=== PATIENT | male | born 1955 | race Caucasian/White ===

== ENCOUNTER 2017-02-22 13:23 | Inpatient (IN) | payer OTHER ==
--- NOTE | 2017-02-22 14:05 | EDM.PDOC ---
ED HPI GENERAL MEDICAL PROBLEM - General Chief Complaint: General Stated Complaint: FLU Time Seen by Provider: 02/22/17 14:05 Source of Information: Reports: Patient - History of Present Illness INITIAL COMMENTS - FREE TEXT/NARRATIVE: HISTORY AND PHYSICAL: History of present illness: [] Patient presents with flulike symptoms he also has problems with memory, weakness, dizzy and nausea History of dyslipidemia and 'prostate problems' Patient does not know his home medications Denies alcohol No fever vomiting diarrhea chest pain shortness breath or palpitation Review of systems: As per history of present illness and below otherwise all systems reviewed and negative. Past medical history: As per history of present illness and as reviewed below otherwise noncontributory. Surgical history: As per history of present illness and as reviewed below otherwise noncontributory. Social history: No reported history of drug or alcohol abuse. Family history: As per history of present illness and as reviewed below otherwise noncontributory. Physical exam: HEENT: Atraumatic, normocephalic, pupils reactive, negative for conjunctival pallor or scleral icterus, mucous membranes moist, throat clear, neck supple, nontender, trachea midline. Lungs: Clear to auscultation, breath sounds equal bilaterally, chest nontender. Heart: S1S2, regular, negative for clicks, rubs, or JVD. Abdomen: Soft, nondistended, nontender. Negative for masses or hepatosplenomegaly. Negative for costovertebral tenderness. Pelvis: Stable nontender. Genitourinary: Deferred. Rectal: Deferred. Extremities: Atraumatic, negative for cords or calf pain. Neurovascular unremarkable. Neuro: Awake, alert, oriented. Cranial nerves II through XII unremarkable. Cerebellum unremarkable. Motor and sensory unremarkable throughout. Exam nonfocal. Skin tenting noted Diagnostics: [] Lab as below EKG Chest one view Head CT without Chest CT without CT abdomen pelvis without Therapeutics: [] Saline 100 cc per hour Impression: Hyponatremia-symptomatic Thrombocytopenia Elevated liver function Renal insufficiency Hypocalcemia Dehydration Definitive disposition and diagnosis as appropriate pending reevaluation and review of above. - Related Data Allergies Allergy/AdvReac Type Severity Reaction Status Date / Time Sulfa (Sulfonamide Allergy Hives Verified 02/22/17 13:34 Antibiotics) verapamil Allergy Hives Verified 02/22/17 13:34 Home Meds: Home Meds . [Unable to Verify Home Med List] 02/22/17 [History] Past Medical History HEENT History: Reports: Impaired vision Cardiovascular History: Reports: None Respiratory History: Reports: None Gastrointestinal History: Reports: None Genitourinary History: Reports: Prostate disorder Neurological History: Reports: None Psychiatric History: Reports: None Endocrine/Metabolic History: Reports: None Hematologic History: Reports: None Immunologic History: Reports: None Oncologic (Cancer) History: Reports: None Dermatologic History: Reports: None - Infectious Disease History Infectious Disease History: Reports: None - Past Surgical History Head Surgeries/Procedures: Reports: None Social & Family History - Tobacco Use Smoking Status *Q: Never Smoker - Caffeine Use Caffeine Use: Reports: Coffee - Recreational Drug Use Recreational Drug Use: No ED ROS GENERAL - Review of Systems Review Of Systems: ROS reveals no pertinent complaints other than HPI. ED EXAM, GENERAL - Physical Exam Exam: See Below Course - Vital Signs Last Recorded V/S: Last Vital Signs Temp 37.7 C 02/22/17 13:25 Pulse 104 H 02/22/17 13:25 Resp 18 02/22/17 13:25 BP 129/73 02/22/17 13:25 Pulse Ox 94 L 02/22/17 13:25 - Orders/Labs/Meds Orders: Active Orders 24 hr Category Date Time Status EKG 12 Lead [EKG Documentation Completion] [RC] STAT Care 02/22/17 13:39 Active EKG Documentation Completion [RC] STAT Care 02/22/17 14:04 Inactive Abdomen Pelvis wo Cont [CT] Stat Exams 02/22/17 14:35 Taken Chest 1V Frontal [CR] Stat Exams 02/22/17 14:04 Taken Chest wo Cont [CT] Stat Exams 02/22/17 14:35 Taken Head wo Cont [CT] Stat Exams 02/22/17 14:04 Taken AMYLASE [CHEM] Stat Lab 02/22/17 14:22 Received CKMB [CHEM] Stat Lab 02/22/17 14:22 Received CREATINE KINASE,CK [CHEM] Stat Lab 02/22/17 14:22 Received CULTURE BLOOD [BC] Stat Lab 02/22/17 14:07 Received CULTURE BLOOD [BC] Stat Lab 02/22/17 14:22 Received LIPASE [CHEM] Stat Lab 02/22/17 14:22 Received Sodium Chloride 0.9% [Normal Saline] 1,000 ml Med 02/22/17 14:15 Active IV STAT Blood Culture x2 Reflex Set [OM.PC] Stat Oth 02/22/17 14:04 Ordered Medication Orders Sodium Chloride (Normal Saline) 1,000 mls @ 125 mls/hr IV STAT HAIM Last Admin: 02/22/17 14:20 Dose: 125 mls/hr Labs: Laboratory Tests 02/22/17 02/22/17 02/22/17 Range/Units 13:46 13:46 13:46 WBC 3.13 L (4.0-11.0) K/uL RBC 4.74 (4.50-5.90) M/uL Hgb 14.6 (13.0-17.0) g/dL Hct 40.0 (38.0-50.0) % MCV 84.4 (80.0-98.0) fL MCH 30.8 (27.0-32.0) pg MCHC 36.5 (31.0-37.0) g/dL RDW Std Deviation 42.2 (28.0-62.0) fl RDW Coeff of Colin 14 (11.0-15.0) % Plt Count 23 L (150-400) K/uL MPV 11.00 (7.40-12.00) fL Add Manual Diff YES Neutrophils % (Manual) 63 (48.0-80.0) % Band Neutrophils % 21 % Lymphocytes % (Manual) 11 L (16.0-40.0) % Monocytes % (Manual) 1 (0.0-15.0) % Metamyelocytes % 4 % Nucleated RBC % 0.0 /100WBC Absolute Seg Neuts 2.0 Band Neutrophils # 0.7 Lymphocytes # (Manual) 0.3 Monocytes # (Manual) 0 Absolute Metamyelocyte 0.1 Nucleated RBCs # 0 K/uL INR 1.09 (0.86-1.11) Sodium 126 L (136-146) mmol/L Potassium 3.4 L (3.5-5.1) mmol/L Chloride 94 L (98-110) mmol/L Carbon Dioxide 19 L (21-31) mmol/L BUN 25 H (6.0-23.0) mg/dL Creatinine 1.7 H (0.6-1.5) mg/dL Est Cr Clr Drug Dosing TNP Estimated GFR (MDRD) 40.9 ml/min Glucose 125 H (60-110) mg/dL Calcium 8.4 L (8.8-10.8) mg/dL Total Bilirubin 0.9 (0.1-1.5) mg/dL AST 503 H (5-40) IU/L ALT 189 H (8-54) IU/L Alkaline Phosphatase 99 (40-150) Troponin I (0.0-0.29) NG/ML Total Protein 6.9 (6.0-8.0) g/dL Albumin 3.8 (3.4-4.8) g/dL Globulin 3.1 (2.0-3.5) g/dL Albumin/Globulin Ratio 1.2 L (1.3-2.8) Urine Color Urine Appearance Urine pH (5.0-8.0) Ur Specific Viola (1.001-1.035) Urine Protein (NEGATIVE) mg/dL Urine Glucose (UA) (NEGATIVE) mg/dL Urine Ketones (NEGATIVE) mg/dL Urine Occult Blood (NEGATIVE) Urine Nitrite (NEGATIVE) Urine Bilirubin (NEGATIVE) Urine Urobilinogen (<2.0) EU/dL Ur Leukocyte Esterase (NEGATIVE) Urine RBC (0-2/HPF) Urine WBC (0-5/HPF) Ur Epithelial Cells (NONE-FEW) Amorphous Sediment (NEGATIVE) Urine Bacteria (NEGATIVE) Fine Granular Casts (NEGATIVE) Urine Opiates Screen (NEGATIVE) Ur Oxycodone Screen (NEGATIVE) Urine Methadone Screen (NEGATIVE) Ur Barbiturates Screen (NEGATIVE) Ur Phencyclidine Scrn (NEGATIVE) Ur Amphetamine Screen (NEGATIVE) U Methamphetamines Scrn (NEGATIVE) U Benzodiazepines Scrn (NEGATIVE) U Cocaine Metab Screen (NEGATIVE) U Marijuana (THC) Screen (NEGATIVE) Ethyl Alcohol mg/dL 02/22/17 02/22/17 02/22/17 Range/Units 14:22 14:22 15:00 WBC (4.0-11.0) K/uL RBC (4.50-5.90) M/uL Hgb (13.0-17.0) g/dL Hct (38.0-50.0) % MCV (80.0-98.0) fL MCH (27.0-32.0) pg MCHC (31.0-37.0) g/dL RDW Std Deviation (28.0-62.0) fl RDW Coeff of Colin (11.0-15.0) % Plt Count (150-400) K/uL MPV (7.40-12.00) fL Add Manual Diff Neutrophils % (Manual) (48.0-80.0) % Band Neutrophils % % Lymphocytes % (Manual) (16.0-40.0) % Monocytes % (Manual) (0.0-15.0) % Metamyelocytes % % Nucleated RBC % /100WBC Absolute Seg Neuts Band Neutrophils # Lymphocytes # (Manual) Monocytes # (Manual) Absolute Metamyelocyte Nucleated RBCs # K/uL INR (0.86-1.11) Sodium (136-146) mmol/L Potassium (3.5-5.1) mmol/L Chloride (98-110) mmol/L Carbon Dioxide (21-31) mmol/L BUN (6.0-23.0) mg/dL Creatinine (0.6-1.5) mg/dL Est Cr Clr Drug Dosing Estimated GFR (MDRD) ml/min Glucose (60-110) mg/dL Calcium (8.8-10.8) mg/dL Total Bilirubin (0.1-1.5) mg/dL AST (5-40) IU/L ALT (8-54) IU/L Alkaline Phosphatase (40-150) Troponin I < 0.10 (0.0-0.29) NG/ML Total Protein (6.0-8.0) g/dL Albumin (3.4-4.8) g/dL Globulin (2.0-3.5) g/dL Albumin/Globulin Ratio (1.3-2.8) Urine Color Urine Appearance Urine pH (5.0-8.0) Ur Specific Viola (1.001-1.035) Urine Protein (NEGATIVE) mg/dL Urine Glucose (UA) (NEGATIVE) mg/dL Urine Ketones (NEGATIVE) mg/dL Urine Occult Blood (NEGATIVE) Urine Nitrite (NEGATIVE) Urine Bilirubin (NEGATIVE) Urine Urobilinogen (<2.0) EU/dL Ur Leukocyte Esterase (NEGATIVE) Urine RBC (0-2/HPF) Urine WBC (0-5/HPF) Ur Epithelial Cells (NONE-FEW) Amorphous Sediment (NEGATIVE) Urine Bacteria (NEGATIVE) Fine Granular Casts (NEGATIVE) Urine Opiates Screen NEGATIVE (NEGATIVE) Ur Oxycodone Screen NEGATIVE (NEGATIVE) Urine Methadone Screen NEGATIVE (NEGATIVE) Ur Barbiturates Screen NEGATIVE (NEGATIVE) Ur Phencyclidine Scrn NEGATIVE (NEGATIVE) Ur Amphetamine Screen NEGATIVE (NEGATIVE) U Methamphetamines Scrn NEGATIVE (NEGATIVE) U Benzodiazepines Scrn NEGATIVE (NEGATIVE) U Cocaine Metab Screen NEGATIVE (NEGATIVE) U Marijuana (THC) Screen NEGATIVE (NEGATIVE) Ethyl Alcohol < 10.0 mg/dL 02/22/17 Range/Units 15:00 WBC (4.0-11.0) K/uL RBC (4.50-5.90) M/uL Hgb (13.0-17.0) g/dL Hct (38.0-50.0) % MCV (80.0-98.0) fL MCH (27.0-32.0) pg MCHC (31.0-37.0) g/dL RDW Std Deviation (28.0-62.0) fl RDW Coeff of Colin (11.0-15.0) % Plt Count (150-400) K/uL MPV (7.40-12.00) fL Add Manual Diff Neutrophils % (Manual) (48.0-80.0) % Band Neutrophils % % Lymphocytes % (Manual) (16.0-40.0) % Monocytes % (Manual) (0.0-15.0) % Metamyelocytes % % Nucleated RBC % /100WBC Absolute Seg Neuts Band Neutrophils # Lymphocytes # (Manual) Monocytes # (Manual) Absolute Metamyelocyte Nucleated RBCs # K/uL INR (0.86-1.11) Sodium (136-146) mmol/L Potassium (3.5-5.1) mmol/L Chloride (98-110) mmol/L Carbon Dioxide (21-31) mmol/L BUN (6.0-23.0) mg/dL Creatinine (0.6-1.5) mg/dL Est Cr Clr Drug Dosing Estimated GFR (MDRD) ml/min Glucose (60-110) mg/dL Calcium (8.8-10.8) mg/dL Total Bilirubin (0.1-1.5) mg/dL AST (5-40) IU/L ALT (8-54) IU/L Alkaline Phosphatase (40-150) Troponin I (0.0-0.29) NG/ML Total Protein (6.0-8.0) g/dL Albumin (3.4-4.8) g/dL Globulin (2.0-3.5) g/dL Albumin/Globulin Ratio (1.3-2.8) Urine Color YELLOW Urine Appearance CLOUDY Urine pH 5.5 (5.0-8.0) Ur Specific Viola 1.025 (1.001-1.035) Urine Protein 100 (NEGATIVE) mg/dL Urine Glucose (UA) NEGATIVE (NEGATIVE) mg/dL Urine Ketones NEGATIVE (NEGATIVE) mg/dL Urine Occult Blood LARGE H (NEGATIVE) Urine Nitrite NEGATIVE (NEGATIVE) Urine Bilirubin NEGATIVE (NEGATIVE) Urine Urobilinogen 0.2 (<2.0) EU/dL Ur Leukocyte Esterase NEGATIVE (NEGATIVE) Urine RBC 0-1 (0-2/HPF) Urine WBC 1-3 (0-5/HPF) Ur Epithelial Cells FEW (NONE-FEW) Amorphous Sediment MODERATE (NEGATIVE) Urine Bacteria 1+ H (NEGATIVE) Fine Granular Casts 4-6 (NEGATIVE) Urine Opiates Screen (NEGATIVE) Ur Oxycodone Screen (NEGATIVE) Urine Methadone Screen (NEGATIVE) Ur Barbiturates Screen (NEGATIVE) Ur Phencyclidine Scrn (NEGATIVE) Ur Amphetamine Screen (NEGATIVE) U Methamphetamines Scrn (NEGATIVE) U Benzodiazepines Scrn (NEGATIVE) U Cocaine Metab Screen (NEGATIVE) U Marijuana (THC) Screen (NEGATIVE) Ethyl Alcohol mg/dL Meds: Medications Generic Name Dose Route Start Last Admin Trade Name Freq PRN Reason Stop Dose Admin Sodium Chloride 1,000 mls @ 125 mls/hr 02/22/17 14:15 02/22/17 14:20 Normal Saline IV 125 mls/hr STAT HAIM Administration Departure - Departure Time of Disposition: 15:23 Disposition: Admitted As Inpatient 64 Condition: fair Clinical Impression: Hyponatremia, Elevated liver function tests, Dehydration, Thrombocytopenia Forms: ED Department Discharge - My Orders Last 24 Hours: My Active Orders 02/22/17 14:04 EKG Documentation Completion [RC] STAT Chest 1V Frontal [CR] Stat Head wo Cont [CT] Stat Blood Culture x2 Reflex Set [OM.PC] Stat 02/22/17 14:07 CULTURE BLOOD [BC] Stat 02/22/17 14:15 Sodium Chloride 0.9% [Normal Saline] 1,000 ml IV STAT 02/22/17 14:22 AMYLASE [CHEM] Stat CKMB [CHEM] Stat CREATINE KINASE,CK [CHEM] Stat CULTURE BLOOD [BC] Stat LIPASE [CHEM] Stat 02/22/17 14:35 Abdomen Pelvis wo Cont [CT] Stat Chest wo Cont [CT] Stat - Assessment/Plan Last 24 Hours: My Active Orders 02/22/17 14:04 EKG Documentation Completion [RC] STAT Chest 1V Frontal [CR] Stat Head wo Cont [CT] Stat Blood Culture x2 Reflex Set [OM.PC] Stat 02/22/17 14:07 CULTURE BLOOD [BC] Stat 02/22/17 14:15 Sodium Chloride 0.9% [Normal Saline] 1,000 ml IV STAT 02/22/17 14:22 AMYLASE [CHEM] Stat CKMB [CHEM] Stat CREATINE KINASE,CK [CHEM] Stat CULTURE BLOOD [BC] Stat LIPASE [CHEM] Stat 02/22/17 14:35 Abdomen Pelvis wo Cont [CT] Stat Chest wo Cont [CT] Stat
[2017-02-22 14:14] LABS: CHLORIDE,CL 94 mmol/L (98-110); SODIUM,NA 126 mmol/L (136-146)
[2017-02-22] MEDS: Sodium Chloride 0.9% 1,000 ML IV SCH ×2 (14:20→23:11)
--- NOTE | 2017-02-22 16:23 | PCM.HP ---
H&P History of Present Illness - General Date of Service: 02/22/17 Admit Problem/Dx: Admission Diagnosis/Problem Admission Diagnosis/Problem Hyponatremia Source of Information: Patient History Limitations: Reports: No limitations - History of Present Illness Initial Comments - Free Text/Narative: Began with shaking chills past several nights as well as watery diarrhea, Feeling "foggy" ,not confused, several days with anorexia bordering on nausea, but no pain or jaundice Sole medications something for prostatism and for cholesterol and flonase for sinus problems. Took antibiotics for same about 4 months ago. No odd food intake, travel or contact with sick people Found to have elevated LFTs. hyponatremia and hypokalemia as wlle as neutropenia and thrombocytopenia Onset of Symptoms: Reports: sudden Symptom Onset Date: 02/17/17 Symptom Onset Time: 22:00 Severity: moderate Improves with: Reports: None Worsens with: Reports: None Associated Symptoms: Reports: loss of appetite - Related Data Allergies/Adverse Reactions: Allergies Allergy/AdvReac Type Severity Reaction Status Date / Time Sulfa (Sulfonamide Allergy Hives Verified 02/22/17 13:34 Antibiotics) verapamil Allergy Hives Verified 02/22/17 13:34 Home Medications: Home Meds Rosuvastatin Calcium 20 mg PO BEDTIME 02/22/17 [History] Past Medical History HEENT History: Reports: Impaired vision, Sinusitis Cardiovascular History: Reports: None Respiratory History: Reports: None Gastrointestinal History: Reports: None Genitourinary History: Reports: Prostate disorder Neurological History: Reports: None Psychiatric History: Reports: None Endocrine/Metabolic History: Reports: None Hematologic History: Reports: None Immunologic History: Reports: None Oncologic (Cancer) History: Reports: None Dermatologic History: Reports: None - Infectious Disease History Infectious Disease History: Reports: None - Past Surgical History Head Surgeries/Procedures: Reports: None Social & Family History - Tobacco Use Smoking Status *Q: Never Smoker - Caffeine Use Caffeine Use: Reports: Coffee - Alcohol Use Alcohol Use History: No - Recreational Drug Use Recreational Drug Use: No - Living Situation & Occupation Living situation: Reports: (domicile in [facility] , runs front end loader technician here) H&P Review of Systems - Review of Systems: Review Of Systems: See Below General: Reports: chills, fatigue, decreased appetite HEENT: Reports: sinus congestion Pulmonary: Reports: No Symptoms Cardiovascular: Reports: no symptoms Gastrointestinal: Reports: Anorexia, Diarrhea Genitourinary: Reports: no symptoms Musculoskeletal: Reports: no symptoms Skin: Reports: no symptoms Psychiatric: Reports: no symptoms Neurological: Reports: No Symptoms, Other (notes slower mentation, no memory problems or fredrick confusion) Exam - Exam Exam: See Below - Vital Signs Vital Signs: Last Vital Signs Temp 37.7 C 02/22/17 13:25 Pulse 91 02/22/17 15:36 Resp 16 02/22/17 15:36 BP 124/82 02/22/17 15:36 Pulse Ox 91 L 02/22/17 15:36 Weight: 76.6 kg - Exam General: alert, oriented Neck: supple Cardiovascular: regular rate, regular rhythm Abdomen: hypoactive bowel sounds (Male) Exam: Deferred Rectal (Males) Exam: Deferred Back Exam: normal inspection Extremities: normal inspection. No: clubbing, calf tenderness - Patient Data Lab Results last 24 hrs: Laboratory Results - last 24 hr 02/22/17 02/22/17 02/22/17 Range/Units 13:46 13:46 13:46 WBC 3.13 L (4.0-11.0) K/uL RBC 4.74 (4.50-5.90) M/uL Hgb 14.6 (13.0-17.0) g/dL Hct 40.0 (38.0-50.0) % MCV 84.4 (80.0-98.0) fL MCH 30.8 (27.0-32.0) pg MCHC 36.5 (31.0-37.0) g/dL RDW Std Deviation 42.2 (28.0-62.0) fl RDW Coeff of Colin 14 (11.0-15.0) % Plt Count 23 L (150-400) K/uL MPV 11.00 (7.40-12.00) fL Add Manual Diff YES Neutrophils % (Manual) 63 (48.0-80.0) % Band Neutrophils % 21 % Lymphocytes % (Manual) 11 L (16.0-40.0) % Monocytes % (Manual) 1 (0.0-15.0) % Metamyelocytes % 4 % Nucleated RBC % 0.0 /100WBC Absolute Seg Neuts 2.0 Band Neutrophils # 0.7 Lymphocytes # (Manual) 0.3 Monocytes # (Manual) 0 Absolute Metamyelocyte 0.1 Nucleated RBCs # 0 K/uL INR 1.09 (0.86-1.11) Sodium 126 L (136-146) mmol/L Potassium 3.4 L (3.5-5.1) mmol/L Chloride 94 L (98-110) mmol/L Carbon Dioxide 19 L (21-31) mmol/L BUN 25 H (6.0-23.0) mg/dL Creatinine 1.7 H (0.6-1.5) mg/dL Est Cr Clr Drug Dosing TNP Estimated GFR (MDRD) 40.9 ml/min Glucose 125 H (60-110) mg/dL Calcium 8.4 L (8.8-10.8) mg/dL Total Bilirubin 0.9 (0.1-1.5) mg/dL AST 503 H (5-40) IU/L ALT 189 H (8-54) IU/L Alkaline Phosphatase 99 (40-150) Creatine Kinase (9-236) IU/L CK-MB (CK-2) (0-6.6) ng/ml Troponin I (0.0-0.29) NG/ML Total Protein 6.9 (6.0-8.0) g/dL Albumin 3.8 (3.4-4.8) g/dL Globulin 3.1 (2.0-3.5) g/dL Albumin/Globulin Ratio 1.2 L (1.3-2.8) Amylase (10-90) U/L Lipase (7-80) U/L Urine Color Urine Appearance Urine pH (5.0-8.0) Ur Specific Bivalve (1.001-1.035) Urine Protein (NEGATIVE) mg/dL Urine Glucose (UA) (NEGATIVE) mg/dL Urine Ketones (NEGATIVE) mg/dL Urine Occult Blood (NEGATIVE) Urine Nitrite (NEGATIVE) Urine Bilirubin (NEGATIVE) Urine Urobilinogen (<2.0) EU/dL Ur Leukocyte Esterase (NEGATIVE) Urine RBC (0-2/HPF) Urine WBC (0-5/HPF) Ur Epithelial Cells (NONE-FEW) Amorphous Sediment (NEGATIVE) Urine Bacteria (NEGATIVE) Fine Granular Casts (NEGATIVE) Urine Opiates Screen (NEGATIVE) Ur Oxycodone Screen (NEGATIVE) Urine Methadone Screen (NEGATIVE) Ur Barbiturates Screen (NEGATIVE) Ur Phencyclidine Scrn (NEGATIVE) Ur Amphetamine Screen (NEGATIVE) U Methamphetamines Scrn (NEGATIVE) U Benzodiazepines Scrn (NEGATIVE) U Cocaine Metab Screen (NEGATIVE) U Marijuana (THC) Screen (NEGATIVE) Ethyl Alcohol mg/dL 02/22/17 02/22/17 02/22/17 Range/Units 14:22 14:22 14:22 WBC (4.0-11.0) K/uL RBC (4.50-5.90) M/uL Hgb (13.0-17.0) g/dL Hct (38.0-50.0) % MCV (80.0-98.0) fL MCH (27.0-32.0) pg MCHC (31.0-37.0) g/dL RDW Std Deviation (28.0-62.0) fl RDW Coeff of Colin (11.0-15.0) % Plt Count (150-400) K/uL MPV (7.40-12.00) fL Add Manual Diff Neutrophils % (Manual) (48.0-80.0) % Band Neutrophils % % Lymphocytes % (Manual) (16.0-40.0) % Monocytes % (Manual) (0.0-15.0) % Metamyelocytes % % Nucleated RBC % /100WBC Absolute Seg Neuts Band Neutrophils # Lymphocytes # (Manual) Monocytes # (Manual) Absolute Metamyelocyte Nucleated RBCs # K/uL INR (0.86-1.11) Sodium (136-146) mmol/L Potassium (3.5-5.1) mmol/L Chloride (98-110) mmol/L Carbon Dioxide (21-31) mmol/L BUN (6.0-23.0) mg/dL Creatinine (0.6-1.5) mg/dL Est Cr Clr Drug Dosing Estimated GFR (MDRD) ml/min Glucose (60-110) mg/dL Calcium (8.8-10.8) mg/dL Total Bilirubin (0.1-1.5) mg/dL AST (5-40) IU/L ALT (8-54) IU/L Alkaline Phosphatase (40-150) Creatine Kinase 746 H (9-236) IU/L CK-MB (CK-2) 1.5 (0-6.6) ng/ml Troponin I < 0.10 (0.0-0.29) NG/ML Total Protein (6.0-8.0) g/dL Albumin (3.4-4.8) g/dL Globulin (2.0-3.5) g/dL Albumin/Globulin Ratio (1.3-2.8) Amylase 70 (10-90) U/L Lipase 93 H (7-80) U/L Urine Color Urine Appearance Urine pH (5.0-8.0) Ur Specific Bivalve (1.001-1.035) Urine Protein (NEGATIVE) mg/dL Urine Glucose (UA) (NEGATIVE) mg/dL Urine Ketones (NEGATIVE) mg/dL Urine Occult Blood (NEGATIVE) Urine Nitrite (NEGATIVE) Urine Bilirubin (NEGATIVE) Urine Urobilinogen (<2.0) EU/dL Ur Leukocyte Esterase (NEGATIVE) Urine RBC (0-2/HPF) Urine WBC (0-5/HPF) Ur Epithelial Cells (NONE-FEW) Amorphous Sediment (NEGATIVE) Urine Bacteria (NEGATIVE) Fine Granular Casts (NEGATIVE) Urine Opiates Screen (NEGATIVE) Ur Oxycodone Screen (NEGATIVE) Urine Methadone Screen (NEGATIVE) Ur Barbiturates Screen (NEGATIVE) Ur Phencyclidine Scrn (NEGATIVE) Ur Amphetamine Screen (NEGATIVE) U Methamphetamines Scrn (NEGATIVE) U Benzodiazepines Scrn (NEGATIVE) U Cocaine Metab Screen (NEGATIVE) U Marijuana (THC) Screen (NEGATIVE) Ethyl Alcohol < 10.0 mg/dL 02/22/17 02/22/17 Range/Units 15:00 15:00 WBC (4.0-11.0) K/uL RBC (4.50-5.90) M/uL Hgb (13.0-17.0) g/dL Hct (38.0-50.0) % MCV (80.0-98.0) fL MCH (27.0-32.0) pg MCHC (31.0-37.0) g/dL RDW Std Deviation (28.0-62.0) fl RDW Coeff of Colin (11.0-15.0) % Plt Count (150-400) K/uL MPV (7.40-12.00) fL Add Manual Diff Neutrophils % (Manual) (48.0-80.0) % Band Neutrophils % % Lymphocytes % (Manual) (16.0-40.0) % Monocytes % (Manual) (0.0-15.0) % Metamyelocytes % % Nucleated RBC % /100WBC Absolute Seg Neuts Band Neutrophils # Lymphocytes # (Manual) Monocytes # (Manual) Absolute Metamyelocyte Nucleated RBCs # K/uL INR (0.86-1.11) Sodium (136-146) mmol/L Potassium (3.5-5.1) mmol/L Chloride (98-110) mmol/L Carbon Dioxide (21-31) mmol/L BUN (6.0-23.0) mg/dL Creatinine (0.6-1.5) mg/dL Est Cr Clr Drug Dosing Estimated GFR (MDRD) ml/min Glucose (60-110) mg/dL Calcium (8.8-10.8) mg/dL Total Bilirubin (0.1-1.5) mg/dL AST (5-40) IU/L ALT (8-54) IU/L Alkaline Phosphatase (40-150) Creatine Kinase (9-236) IU/L CK-MB (CK-2) (0-6.6) ng/ml Troponin I (0.0-0.29) NG/ML Total Protein (6.0-8.0) g/dL Albumin (3.4-4.8) g/dL Globulin (2.0-3.5) g/dL Albumin/Globulin Ratio (1.3-2.8) Amylase (10-90) U/L Lipase (7-80) U/L Urine Color YELLOW Urine Appearance CLOUDY Urine pH 5.5 (5.0-8.0) Ur Specific Bivalve 1.025 (1.001-1.035) Urine Protein 100 (NEGATIVE) mg/dL Urine Glucose (UA) NEGATIVE (NEGATIVE) mg/dL Urine Ketones NEGATIVE (NEGATIVE) mg/dL Urine Occult Blood LARGE H (NEGATIVE) Urine Nitrite NEGATIVE (NEGATIVE) Urine Bilirubin NEGATIVE (NEGATIVE) Urine Urobilinogen 0.2 (<2.0) EU/dL Ur Leukocyte Esterase NEGATIVE (NEGATIVE) Urine RBC 0-1 (0-2/HPF) Urine WBC 1-3 (0-5/HPF) Ur Epithelial Cells FEW (NONE-FEW) Amorphous Sediment MODERATE (NEGATIVE) Urine Bacteria 1+ H (NEGATIVE) Fine Granular Casts 4-6 (NEGATIVE) Urine Opiates Screen NEGATIVE (NEGATIVE) Ur Oxycodone Screen NEGATIVE (NEGATIVE) Urine Methadone Screen NEGATIVE (NEGATIVE) Ur Barbiturates Screen NEGATIVE (NEGATIVE) Ur Phencyclidine Scrn NEGATIVE (NEGATIVE) Ur Amphetamine Screen NEGATIVE (NEGATIVE) U Methamphetamines Scrn NEGATIVE (NEGATIVE) U Benzodiazepines Scrn NEGATIVE (NEGATIVE) U Cocaine Metab Screen NEGATIVE (NEGATIVE) U Marijuana (THC) Screen NEGATIVE (NEGATIVE) Ethyl Alcohol mg/dL Result Diagrams: 02/22/17 13:46 02/22/17 13:46 *Q Meaningful Use (ADM) - VTE *Q VTE Criteria *Q: VTE Pharmacological Contraindications *Q: Thrombocytopenia - Stroke *Q Stroke Criteria *Q: - AMI *Q AMI Criteria *Q: - Problem List (1) Diarrhea SNOMED Code(s): 80930475 ICD Code: R19.7 - DIARRHEA, UNSPECIFIED Status: Acute Priority: High Current Visit: Yes Onset Date: ~02/18/17 Qualifiers: Diarrhea type: presumed infectious Qualified Code(s): A09 - Infectious gastroenteritis and colitis, unspecified (2) Hyponatremia SNOMED Code(s): 95019864 ICD Code: E87.1 - HYPO-OSMOLALITY AND HYPONATREMIA Status: Acute Priority : High Current Visit: Yes (3) Thrombocytopenia SNOMED Code(s): 054238517 ICD Code: D69.6 - THROMBOCYTOPENIA, UNSPECIFIED Status: Acute Priority: High Current Visit: Yes (4) Leukopenia SNOMED Code(s): 27609152 ICD Code: D72.819 - DECREASED WHITE BLOOD CELL COUNT, UNSPECIFIED Status: Acute Priority: Medium Current Visit: Yes Problem List Initiated/Reviewed/Updated: Yes Orders Last 24hrs: Active Orders 24 hr Category Date Time Status Admission Status [Patient Status] [ADT] Stat ADT 02/22/17 15:25 Active EKG 12 Lead [EKG Documentation Completion] [RC] STAT Care 02/22/17 13:39 Active EKG Documentation Completion [RC] STAT Care 02/22/17 14:04 Inactive Abdomen Pelvis wo Cont [CT] Stat Exams 02/22/17 14:35 Taken Chest 1V Frontal [CR] Stat Exams 02/22/17 14:04 Taken Chest wo Cont [CT] Stat Exams 02/22/17 14:35 Taken Head wo Cont [CT] Stat Exams 02/22/17 14:04 Taken ACETAMINOPHEN [CHEM] Stat Lab 02/22/17 15:24 Ordered CULTURE BLOOD [BC] Stat Lab 02/22/17 14:07 Received CULTURE BLOOD [BC] Stat Lab 02/22/17 14:22 Received Sodium Chloride 0.9% [Normal Saline] 1,000 ml Med 02/22/17 14:15 Active IV STAT Blood Culture x2 Reflex Set [OM.PC] Stat Oth 02/22/17 14:04 Ordered Medication Orders Sodium Chloride (Normal Saline) 1,000 mls @ 125 mls/hr IV STAT HAIM Last Admin: 02/22/17 14:20 Dose: 125 mls/hr Assessment/Plan Comment:: fluid and electrolyte losses from diarrhea Will replete with IVs chills and presumed fever suggests infectious origin Check stools for pathogens LFTs possibly from statin will hold Cytopenias ? viral keanu lcheck for HIV
[2017-02-22] MEDS ORDERED: Ondansetron 4 MG/2 ML SDV IVPUSH PRN (16:44)
--- NOTE | 2017-02-22 19:09 | CR ---
EXAM DATE: 02/22/17 PATIENT'S AGE: 61 Patient: XOCHILT ZUNIGA Facility: [place], [place] Site . Site : 1955 Study: XRay Chest [id number]/30/[id number] 2:33:51 PM Ordering Physician: Doctor Marshall Final Report: INDICATION: pain/shortness of breath Single AP view Findings: The lungs are clear. Pulmonary vascularity, mediastinum and cardiac silhouette are within normal limits. No effusions and no pneumothorax. Osseous structures appear unremarkable. Impression: No evidence of acute cardiopulmonary disease. Dictated by: Jesus Manuel Ward MD @ 02/22/2017 14:40:01 (Electronic Signature) Report Signed by Proxy. ALEXA
--- NOTE | 2017-02-22 19:10 | CT ---
EXAM DATE: 02/22/17 PATIENT'S AGE: 61 Patient: XOCHILT ZUNIGA Facility: [place], [place] Site . Site : 1955 Study: CT Head [id number]/[id number] 2:39:30 PM Ordering Physician: Doctor Marshall Final Report: INDICATION: Dizziness x5 days. Worse today. Technique: CT head without IV contrast. Findings: Small amounts of fluid and mucosal thickening in the maxillary, sphenoid, ethmoidal and frontal sinuses consistent with sinusitis. No intracranial hemorrhage, edema, or mass effect. Slight asymmetry in size of frontal horns of the lateral ventricles likely normal variant. Patchy small vessel ischemic disease. Mild cerebral and minimal cerebellar atrophy. Remainder negative. Impression: 1. Chronic intracranial disease without acute intracranial disease. 2. Mild sinusitis. Dictated by Adolfo Damico MD @ Feb 22 2017 2:45PM (Electronic Signature) Report Signed by Proxy. ALEXA
--- NOTE | 2017-02-22 19:11 | CT ---
EXAM DATE: 02/22/17 PATIENT'S AGE: 61 Patient: XOCHILT ZUNIGA Facility: [place], [place] Site . Site : 1955 Study: CT Chest [id number]/[id number] 2:56:14 PM Ordering Physician: Micky Barnett Final Report: Indication: Back pain and dizziness and fever x5 days. Technique: Unenhanced CT of the chest with multiplanar reconstruction. Findings: The thyroid gland bilaterally symmetrical. Thoracic lymph nodes normal by size criteria. The thoracic aorta normal in caliber. The right and left main pulmonary arteries are unremarkable. The trachea and mainstem bronchi are patent. The lungs are free of nodules, masses, and areas of acute airspace consolidation. A reticular pattern of interstitial disease typical of mild fibrosis is identified in the periphery of both lungs in the upper and lower lobes. No pleural fluid. No abnormal pericardial fluid. No acute bony abnormalities. Impression: 1. Interstitial fibrosis in the lung periphery bilaterally. 2. No acute chest disease. Dictated by Marsha Mendiola MD @ Feb 22 2017 3:01PM (Electronic Signature) Report Signed by Proxy. ALEXA
--- NOTE | 2017-02-22 19:12 | CT ---
EXAM DATE: 02/22/17 PATIENT'S AGE: 61 Patient: XOCHILT ZUNIGA Facility: [place], [place] Site . Site : 1955 Study: CT Abdomen/Pelvis [id number]/30/2017 2:59:31 PM Ordering Physician: Micky Barnett Final Report: INDICATION: Fever and dizziness and pain x5 days. Technique: Volumetric unenhanced CT the abdomen and pelvis with multiplanar reconstruction. Findings: Mild fibrotic changes at the lung bases. The liver, spleen, pancreas, adrenal glands, gallbladder, and biliary tract are unremarkable. The kidneys normal in size, shape, and position. No hydronephrosis. No urinary tract stones or mass lesions. The abdominal aorta normal in caliber. No paraaortic or retrocrural lymphadenopathy. Normal bowel gas pattern. Fluid filled loops of normal caliber small bowel throughout the abdomen and pelvis are a nonspecific finding which can be present in the face of an enteritis. No inflammatory changes involving the bowel. Urinary bladder has a smooth contour. The mildly enlarged prostate gland causes a smooth impression upon the base of the urinary bladder. No free fluid in the abdomen and pelvis. Lumbar spondylosis. Impression : 1. Normal caliber fluid-filled loops of small bowel throughout the abdomen and pelvis are a nonspecific finding which can be present in the face of an enteritis. 2. Prostatic enlargement. 3. Mild interstitial fibrosis at the lung bases Dictated by Marsha Mendiola MD @ Feb 22 2017 3:06PM (Electronic Signature) Report Signed by Proxy. ALEXA
[2017-02-23] MEDS: Sodium Chloride 0.9% 1,000 ML IV SCH ×2 (07:32→15:02)
[2017-02-23] MEDS ORDERED: Ibuprofen 800 MG Tab PO PRN (10:15)
[2017-02-23] MEDS: Cefdinir 300 MG Cap PO SCH ×2 (11:16→21:11)
--- NOTE | 2017-02-23 13:34 | PCM.PN ---
<Shivam Yarbrough - Last Filed: 02/23/17 13:50> - General Info Date of Service: 02/23/17 Admission Dx/Problem (Free Text): Admission Diagnosis/Problem Admission Diagnosis/Problem Hyponatremia Subjective Update: Patient reports that he is not feeling any improvement since admission. He continues to feel "foggy" and weak. He states he finds it difficult to ambulate and that he feels unsteady with ambulation. Friends at his bedside state that the patient's speech is also different and somewhat slurred. Patient has no cardiac history no history of stroke. I did discuss with the patient the finding of elevated liver enzymes. He has no history of alcohol use, IV drug abuse and no history of hepatitis. He notes that he does take Tylenol on a nightly basis for minor aches and pains. He is unsure how long he has been doing this. The patient reports no abdominal pain and he is voiding appropriately. His appetite is diminished but he denies any nausea or vomiting. He also denies any chest pain, palpitations, shortness of breath, wheezing, cough, headache. He did have a temperature this morning 100.9F. Functional Status: Reports: urinating - Review of Systems General: Reports: Weakness, Fatigue HEENT: Reports: sinus congestion Pulmonary: Reports: no symptoms Cardiovascular: Reports: No Symptoms Gastrointestinal: Reports: Decreased appetite Genitourinary: Reports: no symptoms Musculoskeletal: Reports: no symptoms Skin: Reports: no symptoms Neurological: Reports: Difficulty Walking, Weakness, Change in Speech, Gait Disturbance Psychiatric: Reports: no symptoms - Patient Data Vitals - most recent: Last Vital Signs Temp 100 F 02/23/17 12:37 Pulse 85 02/23/17 11:45 Resp 20 02/23/17 11:45 BP 127/70 02/23/17 11:45 Pulse Ox 100 02/23/17 11:45 Weight - most recent: 71.3 kg I&O - last 24 hours: Intake & Output 02/22/17 02/23/17 02/23/17 22:59 06:59 14:59 Intake Total 1600 Output Total 950 Balance 650 Lab Results last 24 hrs: Laboratory Results - last 24 hr 02/23/17 02/23/17 02/23/17 Range/Units 05:15 05:15 05:15 WBC 2.94 L (4.0-11.0) K/uL RBC 4.18 L (4.50-5.90) M/uL Hgb 12.8 L (13.0-17.0) g/dL Hct 35.4 L (38.0-50.0) % MCV 84.7 (80.0-98.0) fL MCH 30.6 (27.0-32.0) pg MCHC 36.2 (31.0-37.0) g/dL RDW Std Deviation 43.2 (28.0-62.0) fl RDW Coeff of Colin 14 (11.0-15.0) % Plt Count 20 L (150-400) K/uL MPV 10.20 (7.40-12.00) fL Add Manual Diff YES Neutrophils % (Manual) 75 (48.0-80.0) % Band Neutrophils % 9 % Lymphocytes % (Manual) 15 L (16.0-40.0) % Monocytes % (Manual) 1 (0.0-15.0) % Nucleated RBC % 0.0 /100WBC Absolute Seg Neuts 2.2 Band Neutrophils # 0.3 Lymphocytes # (Manual) 0.4 Monocytes # (Manual) 0 Nucleated RBCs # 0 K/uL Sodium (136-146) mmol/L Potassium (3.5-5.1) mmol/L Chloride (98-110) mmol/L Carbon Dioxide (21-31) mmol/L BUN (6.0-23.0) mg/dL Creatinine (0.6-1.5) mg/dL Est Cr Clr Drug Dosing mL/min Estimated GFR (MDRD) ml/min Glucose (60-110) mg/dL Calcium (8.8-10.8) mg/dL Magnesium 1.9 (1.5-2.3) mEq/L Iron (50-170) ug/dL TIBC (273-456) ug/dL % Saturation (20-55) % Ammonia (14-68) UG/DL Triglycerides 452 H (10-190) mg/dL Cholesterol 69 L (131-240) mg/dL HDL Cholesterol < 9 L (40-80) mg/dL Cholesterol/HDL Ratio 7.0 H (3.3-6.0) 02/23/17 02/23/17 02/23/17 Range/Units 05:15 05:24 10:49 WBC (4.0-11.0) K/uL RBC (4.50-5.90) M/uL Hgb (13.0-17.0) g/dL Hct (38.0-50.0) % MCV (80.0-98.0) fL MCH (27.0-32.0) pg MCHC (31.0-37.0) g/dL RDW Std Deviation (28.0-62.0) fl RDW Coeff of Colin (11.0-15.0) % Plt Count (150-400) K/uL MPV (7.40-12.00) fL Add Manual Diff Neutrophils % (Manual) (48.0-80.0) % Band Neutrophils % % Lymphocytes % (Manual) (16.0-40.0) % Monocytes % (Manual) (0.0-15.0) % Nucleated RBC % /100WBC Absolute Seg Neuts Band Neutrophils # Lymphocytes # (Manual) Monocytes # (Manual) Nucleated RBCs # K/uL Sodium 124 L (136-146) mmol/L Potassium 3.4 L (3.5-5.1) mmol/L Chloride 96 L (98-110) mmol/L Carbon Dioxide 16 L (21-31) mmol/L BUN 33 H (6.0-23.0) mg/dL Creatinine 2.0 H (0.6-1.5) mg/dL Est Cr Clr Drug Dosing 37.68 mL/min Estimated GFR (MDRD) 33.9 ml/min Glucose 94 (60-110) mg/dL Calcium 7.5 L (8.8-10.8) mg/dL Magnesium (1.5-2.3) mEq/L Iron 52 (50-170) ug/dL TIBC 200 L (273-456) ug/dL % Saturation 26.00 (20-55) % Ammonia 46 (14-68) UG/DL Triglycerides (10-190) mg/dL Cholesterol (131-240) mg/dL HDL Cholesterol (40-80) mg/dL Cholesterol/HDL Ratio (3.3-6.0) Markos Results last 24 hrs: Microbiology 02/22/17 22:05 Stool for WBCs - Final Stool / Feces POSITIVE FOR WBC'S 02/22/17 22:05 Campylobacter Antigen Assay - Final Stool / Feces NEGATIVE CAMPYLOBACTER AG Med Orders - Current: Current Medications Cefdinir (Omnicef) 300 mg PO BID [facility] Last Admin: 02/23/17 11:16 Dose: 300 mg Sodium Chloride (Normal Saline) 1,000 mls @ 125 mls/hr IV STAT [facility] Last Admin: 02/23/17 07:32 Dose: 125 mls/hr Sodium Chloride (Normal Saline) 1,000 mls @ 125 mls/hr IV ASDIRECTED [facility] Ibuprofen (Motrin) 800 mg PO Q8H PRN PRN Reason: FEVER Last Admin: 02/23/17 11:15 Dose: 800 mg Ondansetron HCl (Zofran) 4 mg IVPUSH Q4H PRN PRN Reason: Nausea - Exam Quality Assessment: DVT prophylaxis (scd's) General: alert, oriented, cooperative, no acute distress HEENT: Pupils equal, Pupils reactive, EOMI, Mucous membr. moist/pink Neck: supple Lungs: Clear to auscultation, Normal respiratory effort Cardiovascular: Regular Rate, Regular Rhythm Abdomen: bowel sounds present, soft, no tenderness, no distension Extremities: no edema, no calf tenderness Peripheral Pulses: 2+: radial (L), radial (R) Skin: warm, dry, intact Neurological: cranial nerves intact, other (Patient will not attempt ambulating secondary to feeling unsteady on feet.) Psy/Mental Status: alert, normal affect, normal mood - Problem List & Annotations (1) Elevated liver function tests SNOMED Code(s): 032817152 Code(s): R94.5 - ABNORMAL RESULTS OF LIVER FUNCTION STUDIES Status: Acute Current Visit: Yes (2) Hyponatremia SNOMED Code(s): 54970229 Code(s): E87.1 - HYPO-OSMOLALITY AND HYPONATREMIA Status: Acute Priority : High Current Visit: Yes (3) Leukopenia SNOMED Code(s): 88707116 Code(s): D72.819 - DECREASED WHITE BLOOD CELL COUNT, UNSPECIFIED Status: Acute Priority: Medium Current Visit: Yes (4) Thrombocytopenia SNOMED Code(s): 193462857 Code(s): D69.6 - THROMBOCYTOPENIA, UNSPECIFIED Status: Acute Priority: High Current Visit: Yes (5) Sinusitis SNOMED Code(s): 48834531 Code(s): J32.9 - CHRONIC SINUSITIS, UNSPECIFIED Status: Acute Current Visit: Yes - Problem List Review Problem List Initiated/Reviewed/Updated: Yes - My Orders Last 24 Hours: My Active Orders 02/23/17 10:15 Ibuprofen [Motrin] 800 mg PO Q8H PRN 02/23/17 10:18 Abdomen Ltd [US] Routine Brain w wo Cont [MR] Routine 02/23/17 10:30 Cefdinir [Omnicef] 300 mg PO BID 02/23/17 13:30 Sodium Chloride 0.9% [Normal Saline] 1,000 ml IV ASDIRECTED - Plan Plan:: #1. Hyponatremia/hypokalemia: -Sodium is 124 this morning previous was 126. Patient will be started on normal saline at 125 cc/hour. -potassium this morning is 3.4. Patient will be given 40 mEq of potassium chloride by mouth. #2. Dehydration: -Patient has had little appetite over the last few days without much oral intake. BUN is elevated at 33 (previous was 24) creatinine is 2 (previously 1.7) -Patient will be maintained on normal saline at 125 cc/hour. -Daily BMP to assess kidney function and electrolytes. #3. Elevated liver enzymes: -Abdominal CT shows that there may be an underlying enteritis. Otherwise unremarkable. -Right upper quadrant ultrasound is pending. -Ammonia level was within normal limits. -Hepatitis panel ordered with results pending. -HIV testing pending. -Ferritin saturation is within normal limits so no need to pursue workup of hemachromatosis. #4. Hypertriglyceridemia: -Triglycerides elevated at 452. Patient's home medication of Crestor is currently being held secondary to elevated CK. -Will continue to monitor. -Lipase is mildly elevated at 92. We are not treating the patient for pancreatitis at this time as he has no abdominal pain. #5. Leukopenia/thrombocytopenia: -White blood cell count is slightly more elevated today. Platelets are stable. Absolute neutrophil count is 2200 -continue to monitor with daily CBC. #6. Sinusitis: -Cefdinir 300 mg twice a day -Flonase daily. #7. Neurological deficits: -Patient feels unsteady with ambulation and family friends noticed that his speech is more slurred than normal. Cranial nerves II through XII tested and intact. -Brain MRI will be ordered with results pending. <Andrzej Mcknight O - Last Filed: 02/24/17 13:50> - Patient Data Vitals - most recent: Last Vital Signs Temp 37.4 C 02/24/17 11:50 Pulse 69 02/24/17 04:00 Resp 18 02/24/17 04:00 BP 111/66 02/24/17 04:00 Pulse Ox 96 02/24/17 04:00 I&O - last 24 hours: Intake & Output 02/23/17 02/24/17 02/24/17 22:59 06:59 14:59 Intake Total 2100 1350 Output Total 1100 1005 Balance 1000 345 Lab Results last 24 hrs: Laboratory Results - last 24 hr 02/24/17 02/24/17 02/24/17 Range/Units 04:24 04:24 04:24 WBC 4.39 (4.0-11.0) K/uL RBC 4.15 L (4.50-5.90) M/uL Hgb 12.6 L (13.0-17.0) g/dL Hct 34.9 L (38.0-50.0) % MCV 84.1 (80.0-98.0) fL MCH 30.4 (27.0-32.0) pg MCHC 36.1 (31.0-37.0) g/dL RDW Std Deviation 43.8 (28.0-62.0) fl RDW Coeff of Colin 14 (11.0-15.0) % Plt Count 14 L (150-400) K/uL Neutrophils % (Manual) 65 (48.0-80.0) % Band Neutrophils % 6 % Lymphocytes % (Manual) 28 (16.0-40.0) % Monocytes % (Manual) 1 (0.0-15.0) % Nucleated RBC % 0.0 /100WBC Absolute Seg Neuts 2.9 Band Neutrophils # 0.3 Lymphocytes # (Manual) 1.2 Monocytes # (Manual) 0 Sodium 134 L (136-146) mmol/L Potassium 3.2 L (3.5-5.1) mmol/L Chloride 107 (98-110) mmol/L Carbon Dioxide 15 L (21-31) mmol/L BUN 44 H (6.0-23.0) mg/dL Creatinine 2.4 H (0.6-1.5) mg/dL Est Cr Clr Drug Dosing 31.40 mL/min Estimated GFR (MDRD) 27.5 ml/min Glucose 84 (60-110) mg/dL Calcium 7.6 L (8.8-10.8) mg/dL Total Bilirubin 0.7 (0.1-1.5) mg/dL AST 302 H (5-40) IU/L ALT 158 H (8-54) IU/L Alkaline Phosphatase 93 (40-150) Creatine Kinase 523 H (9-236) IU/L Total Protein 4.9 L (6.0-8.0) g/dL Albumin 2.7 L (3.4-4.8) g/dL Globulin 2.2 (2.0-3.5) g/dL Albumin/Globulin Ratio 1.2 L (1.3-2.8) Triglycerides 717 H (10-190) mg/dL Markos Results last 24 hrs: Microbiology 02/22/17 22:05 Stool Culture - Final Stool / Feces NO SALMONELLA, SHIGELLA,OR E.COLI O157 ISOLATED Campylobacter Antigen Assay - Final NEGATIVE CAMPYLOBACTER AG - Final NEGATIVE FOR SHIGA TOXIN 1 - Final NEGATIVE FOR SHIGA TOXIN 2 02/24/17 04:09 Clostridium difficile Toxin A&B (M) - Final Stool / Feces Negative for C.Diff Toxin/AG Med Orders - Current: Current Medications Cefdinir (Omnicef) 300 mg PO BID [facility] Last Admin: 02/24/17 08:07 Dose: 300 mg Fluticasone Propionate (Flonase) 1 gm NASBOTH BID [facility] Last Admin: 02/24/17 08:06 Dose: 1 spray Sodium Chloride (Normal Saline) 1,000 mls @ 125 mls/hr IV ASDIRECTED [facility] Last Admin: 02/24/17 09:00 Dose: 125 mls/hr Ibuprofen (Motrin) 800 mg PO Q8H PRN PRN Reason: FEVER Last Admin: 02/23/17 11:15 Dose: 800 mg Ondansetron HCl (Zofran) 4 mg IVPUSH Q4H PRN PRN Reason: Nausea Discontinued Medications Sodium Chloride (Normal Saline) 1,000 mls @ 125 mls/hr IV STAT [facility] Last Admin: 02/23/17 07:32 Dose: 125 mls/hr Potassium Chloride (Klor-Con M20) 40 meq PO ONETIME ONE Stop: 02/23/17 13:58 Last Admin: 02/23/17 14:59 Dose: 40 meq Potassium Chloride (Klor-Con M20) 40 meq PO ONETIME ONE Stop: 02/24/17 07:36 Last Admin: 02/24/17 08:06 Dose: 40 meq - Problem List & Annotations (1) Diarrhea SNOMED Code(s): 56934815 Code(s): R19.7 - DIARRHEA, UNSPECIFIED Status: Acute Priority: High Current Visit: Yes Onset Date: ~02/18/17 Qualifiers: Diarrhea type: presumed infectious Qualified Code(s): A09 - Infectious gastroenteritis and colitis, unspecified (2) Hyponatremia SNOMED Code(s): 94125085 Code(s): E87.1 - HYPO-OSMOLALITY AND HYPONATREMIA Status: Acute Priority : High Current Visit: Yes (3) Thrombocytopenia SNOMED Code(s): 637711203 Code(s): D69.6 - THROMBOCYTOPENIA, UNSPECIFIED Status: Acute Priority: High Current Visit: Yes (4) Leukopenia SNOMED Code(s): 20869611 Code(s): D72.819 - DECREASED WHITE BLOOD CELL COUNT, UNSPECIFIED Status: Acute Priority: Medium Current Visit: Yes - Assessment Assessment:: I was present with the resident during the history and exam. I discussed the case with the resident and agree with the findings and plan as documented in the residents note. Andrzej Mcknight MD - Plan Plan:: I was present with the resident during the history and exam. I discussed the case with the resident and agree with the findings and plan as documented in the resident's note. Andrzej Hayden
[2017-02-23] MEDS ORDERED: Potassium Chloride 20 MEQ Tab.ER PO ONE (13:57)
[2017-02-23] MEDS: Fluticasone Propionate Nasal Spray 16 GM Bottle NASBOTH SCH ×2 (14:58→21:11)
--- NOTE | 2017-02-23 17:29 | US ---
EXAMINATION: Right upper quadrant ultrasound HISTORY: Elevated liver enzymes COMPARISON: CT dated 02/22/2017 TECHNIQUE: Grayscale and color Doppler images obtained of the right upper quadrant. FINDINGS: The visualized pancreas appears normal. The liver is normal in contour and echogenicity wi thout a focal hepatic mass. The gallbladder wall thickness is normal. No pericholecystic fluid or sh adowing gallstones. The common bile duct measures 2 mm. The sonographic Macias sign is negative. The right kidney measures 12.3 cm [id number] without evidence of hydronephrosis. No abdominal ascites . IMPRESSION: 1. Unremarkable right upper quadrant ultrasound.
[2017-02-24] MEDS: Sodium Chloride 0.9% 1,000 ML IV SCH ×2 (00:34→09:00)
[2017-02-24] MEDS ORDERED: Potassium Chloride 20 MEQ Tab.ER PO ONE (07:35)
[2017-02-24] MEDS: Fluticasone Propionate Nasal Spray 16 GM Bottle NASBOTH SCH (08:06)
[2017-02-24] MEDS: Cefdinir 300 MG Cap PO SCH (08:07)
--- NOTE | 2017-02-24 12:35 | PCM.DCSUM1 ---
<Shivam Yarbrough - Last Filed: 02/24/17 12:23> Discharge Summary - Hospital Course Free Text/Narrative:: Admission diagnoses: #1. Altered mental status #2. Dehydration secondary to diarrhea #3. Hyponatremia #4. Thrombocytopenia #5. Leukopenia #6. Rhabdomyolysis Discharge diagnoses: #1. Altered mental status, resolved #2. Dehydration secondary to diarrhea #3. Hyponatremia, improved #4. Thrombocytopenia, worsening #5. Leukopenia, improved #6. Rhabdomyolysis with elevated CK, improving #7. Acute kidney injury, worsening #8. Elevated LFTs, improving 61-year-old male admitted with fever, chills, diarrhea and altered mental status. Patient's sodium on admission was 126 and did decrease to 124. He was started on normal saline and his sodium did improve to 134. With this improvement in his sodium, the patient's altered mental status resolved. Secondary to the altered mental status an MRI was ordered and was negative. Head CT was negative. Urine drug screen was negative. Ethanol level was negative. Patient also had a chest x-ray and chest CT done secondary to fever and chills and both of these were negative. Secondary to the patient's diarrhea he did have an abdominal CT done which showed evidence of enteritis and an enlarged prostate but no other acute processes. The patient had no abdominal pain during admission. Stool cultures were positive for white blood cells but negative for any infectious pathogens. The patient was also found to be leukopenic but his white blood cell count did return to within normal limits at the time of discharge. The patient's platelet count on admission was 23,000 and did decrease to 14,000 at the time of discharge. The patient had no active bleeding during admission including hemoptysis and bloody or black stools. It was recommended that the patient be transferred to another facility for platelet transfusion but the patient decided to return to [place] for further workup and platelet transfusion. Patient was not started on any IV antibiotics during admission. Patient was also found to have elevated liver enzymes of both his ALT and AST. Right upper quadrant was obtained and was negative. ammonia levels were within normal limits. Lipase was mildly elevated at 93 but again, the patient had no abdominal pain, nausea or vomiting during admission. His triglycerides are elevated at 452 and did increase to 717 the time of discharge. His home medication of Crestor is being held secondary to an elevated CK which did improve during admission. His HDL was less than 9 and his cholesterol is low. Secondary to the patient's dehydration his BUN and creatinine worsened during admission despite being on IV fluids. It was recommended that the patient remained for one more night for additional IV hydration but the patient wanted to return to [place] for his platelet transfusion as soon as possible. Blood Cultures were negative x1 day. The patient was also febrile during admission with a temperature of 102.7 and he did receive ibuprofen one time which he responded to. Tylenol was not given secondary to the patient's elevated liver enzymes. Urinalysis showed large occult blood and +1 bacteria but this was asymptomatic with no discomfort during urination and was started on IV antibiotics. At the time of discharge, the altered mental status had resolved, the patient was ambulating without difficulty, voiding appropriately, tolerating oral intake without any nausea, vomiting, constipation, diarrhea or abdominal pain. - Discharge Data Discharge Date: 02/24/17 Discharge Disposition: Home, Self-Care 01 Condition: Fair - Discharge Diagnosis/Problem(s) (1) Elevated liver function tests SNOMED Code(s): 502588379 ICD Code: R94.5 - ABNORMAL RESULTS OF LIVER FUNCTION STUDIES Status: Acute Current Visit: Yes (2) Hyponatremia SNOMED Code(s): 32077833 ICD Code: E87.1 - HYPO-OSMOLALITY AND HYPONATREMIA Status: Acute Priority : High Current Visit: Yes (3) Leukopenia SNOMED Code(s): 79181357 ICD Code: D72.819 - DECREASED WHITE BLOOD CELL COUNT, UNSPECIFIED Status: Acute Priority: Medium Current Visit: Yes (4) Thrombocytopenia SNOMED Code(s): 764705773 ICD Code: D69.6 - THROMBOCYTOPENIA, UNSPECIFIED Status: Acute Priority: High Current Visit: Yes (5) Sinusitis SNOMED Code(s): 95613426 ICD Code: J32.9 - CHRONIC SINUSITIS, UNSPECIFIED Status: Acute Current Visit: Yes - Patient Summary/Data Consults: Consultations 02/23/17 16:35 Consult to Physical Therapy [PT Evaluation and Treatment] [CONS] Routine - Patient Instructions Diet: Usual Diet as Tolerated Activity: As Tolerated Driving: Do Not Drive Showering/Bathing: May Shower Notify Provider of: Fever, Increased Pain, Nausea and/or Vomiting - Discharge Plan Prescriptions/Med Rec: Cefdinir [IJD: Cefdinir] 300 mg PO BID #14 capsule Fluticasone Propionate [Flonase] 1 spray NASBOTH BID #1 bottle Home Medications: Home Meds Cefdinir [IJD: Cefdinir] 300 mg PO BID #14 capsule 02/24/17 [Rx] Fluticasone Propionate [Flonase] 1 spray NASBOTH BID #1 bottle 02/24/17 [Rx] Patient Handouts: Cefdinir capsules, Hyponatremia, [id number], Fluticasone nasal spray, Dehydration, Adult, [id number] Referrals: PCP,None [Primary Care Provider] - - Discharge Summary/Plan Comment DC Time >30 min.: No Discharge Summary/Plan Comment: Admission diagnoses: #1. Altered mental status #2. Dehydration secondary to diarrhea #3. Hyponatremia #4. Thrombocytopenia #5. Leukopenia #6. Rhabdomyolysis Discharge diagnoses: #1. Altered mental status, resolved #2. Dehydration secondary to diarrhea #3. Hyponatremia, improved #4. Thrombocytopenia, worsening #5. Leukopenia, improved #6. Rhabdomyolysis with elevated CK, improving #7. Acute kidney injury, worsening #8. Elevated LFTs, improving #9. Acute Sinusitis. 61-year-old male admitted with fever, chills, diarrhea and altered mental status. Patient's sodium on admission was 126 and did decrease to 124. He was started on normal saline and his sodium did improve to 134. With this improvement in his sodium, the patient's altered mental status resolved. Secondary to the altered mental status an MRI was ordered and was negative. Head CT was negative. Urine drug screen was negative. Ethanol level was negative. Patient also had a chest x-ray and chest CT done secondary to fever and chills and both of these were negative. Secondary to the patient's diarrhea he did have an abdominal CT done which showed evidence of enteritis and an enlarged prostate but no other acute processes. The patient had no abdominal pain during admission. Stool cultures were positive for white blood cells but negative for any infectious pathogens. The patient was also found to be leukopenic but his white blood cell count did return to within normal limits at the time of discharge. The patient's platelet count on admission was 23,000 and did decrease to 14,000 at the time of discharge. The patient had no active bleeding during admission including hemoptysis and bloody or black stools. It was recommended that the patient be transferred to another facility for platelet transfusion but the patient decided to return to [place] for further workup and platelet transfusion. Patient was not started on any IV antibiotics during admission. Patient was also found to have elevated liver enzymes of both his ALT and AST. Right upper quadrant was obtained and was negative. ammonia levels were within normal limits. Lipase was mildly elevated at 93 but again, the patient had no abdominal pain, nausea or vomiting during admission. His triglycerides are elevated at 452 and did increase to 717 the time of discharge. His home medication of Crestor is being held secondary to an elevated CK which did improve during admission. His HDL was less than 9 and his cholesterol is low. Secondary to the patient's dehydration his BUN and creatinine worsened during admission despite being on IV fluids. It was recommended that the patient remained for one more night for additional IV hydration but the patient wanted to return to [place] for his platelet transfusion as soon as possible. Blood Cultures were negative x1 day. The patient was also febrile during admission with a temperature of 102.7 and he did receive ibuprofen one time which he responded to. Tylenol was not given secondary to the patient's elevated liver enzymes. Urinalysis showed large occult blood and +1 bacteria but this was asymptomatic with no discomfort during urination and was started on IV antibiotics. At the time of discharge, the altered mental status had resolved, the patient was ambulating without difficulty, voiding appropriately, tolerating oral intake without any nausea, vomiting, constipation, diarrhea or abdominal pain. Discharge plan: #1. It was recommended that the patient be transferred to another facility for platelet transfusion and further workup by welder apprentice secondary to his low platelet count and leukopenia present on admission. The patient and his family decided to return to [place] for further workup despite the risks involved transporting themselves. #2. It was recommended that the patient present to the ER once in [place] for further workup and it is recommended that the patient receive a platelet transfusion, workup by welder apprentice and possible bone marrow biopsy. #3. Patient prescribed cefdinir 3 mg twice a day, 14 tabs, zero refills for sinusitis. #4. Patient prescribed Flonase for current sinusitis. #5. Patient instructed to not take his Crestor and to have his CK levels reassessed once in [place]. - Patient Data Vitals - Most Recent: Last Vital Signs Temp 99.4 F 02/24/17 11:50 Pulse 69 02/24/17 04:00 Resp 18 02/24/17 04:00 BP 111/66 02/24/17 04:00 Pulse Ox 96 02/24/17 04:00 Weight - Most Recent: 71.3 kg I&O - Last 24 hours: Intake & Output 02/23/17 02/24/17 02/24/17 22:59 06:59 14:59 Intake Total 2100 1350 Output Total 1100 1005 Balance 1000 345 Lab Results - Last 24 hrs: Laboratory Results - last 24 hr 02/24/17 02/24/17 02/24/17 Range/Units 04:24 04:24 04:24 WBC 4.39 (4.0-11.0) K/uL RBC 4.15 L (4.50-5.90) M/uL Hgb 12.6 L (13.0-17.0) g/dL Hct 34.9 L (38.0-50.0) % MCV 84.1 (80.0-98.0) fL MCH 30.4 (27.0-32.0) pg MCHC 36.1 (31.0-37.0) g/dL RDW Std Deviation 43.8 (28.0-62.0) fl RDW Coeff of Colin 14 (11.0-15.0) % Plt Count 14 L (150-400) K/uL Neutrophils % (Manual) 65 (48.0-80.0) % Band Neutrophils % 6 % Lymphocytes % (Manual) 28 (16.0-40.0) % Monocytes % (Manual) 1 (0.0-15.0) % Nucleated RBC % 0.0 /100WBC Absolute Seg Neuts 2.9 Band Neutrophils # 0.3 Lymphocytes # (Manual) 1.2 Monocytes # (Manual) 0 Sodium 134 L (136-146) mmol/L Potassium 3.2 L (3.5-5.1) mmol/L Chloride 107 (98-110) mmol/L Carbon Dioxide 15 L (21-31) mmol/L BUN 44 H (6.0-23.0) mg/dL Creatinine 2.4 H (0.6-1.5) mg/dL Est Cr Clr Drug Dosing 31.40 mL/min Estimated GFR (MDRD) 27.5 ml/min Glucose 84 (60-110) mg/dL Calcium 7.6 L (8.8-10.8) mg/dL Total Bilirubin 0.7 (0.1-1.5) mg/dL AST 302 H (5-40) IU/L ALT 158 H (8-54) IU/L Alkaline Phosphatase 93 (40-150) Creatine Kinase 523 H (9-236) IU/L Total Protein 4.9 L (6.0-8.0) g/dL Albumin 2.7 L (3.4-4.8) g/dL Globulin 2.2 (2.0-3.5) g/dL Albumin/Globulin Ratio 1.2 L (1.3-2.8) Triglycerides 717 H (10-190) mg/dL SHARRI Results - Last 24 hrs: Microbiology 02/22/17 22:05 Stool Culture - Final Stool / Feces NO SALMONELLA, SHIGELLA,OR E.COLI O157 ISOLATED Campylobacter Antigen Assay - Final NEGATIVE CAMPYLOBACTER AG - Final NEGATIVE FOR SHIGA TOXIN 1 - Final NEGATIVE FOR SHIGA TOXIN 2 02/24/17 04:09 Clostridium difficile Toxin A&B (M) - Final Stool / Feces Negative for C.Diff Toxin/AG Med Orders - Current: Current Medications Cefdinir (Omnicef) 300 mg PO BID [facility] Last Admin: 02/24/17 08:07 Dose: 300 mg Fluticasone Propionate (Flonase) 1 gm NASBOTH BID [facility] Last Admin: 02/24/17 08:06 Dose: 1 spray Sodium Chloride (Normal Saline) 1,000 mls @ 125 mls/hr IV ASDIRECTED [facility] Last Admin: 02/24/17 09:00 Dose: 125 mls/hr Ibuprofen (Motrin) 800 mg PO Q8H PRN PRN Reason: FEVER Last Admin: 02/23/17 11:15 Dose: 800 mg Ondansetron HCl (Zofran) 4 mg IVPUSH Q4H PRN PRN Reason: Nausea Discontinued Medications Sodium Chloride (Normal Saline) 1,000 mls @ 125 mls/hr IV STAT [facility] Last Admin: 02/23/17 07:32 Dose: 125 mls/hr Potassium Chloride (Klor-Con M20) 40 meq PO ONETIME ONE Stop: 02/23/17 13:58 Last Admin: 02/23/17 14:59 Dose: 40 meq Potassium Chloride (Klor-Con M20) 40 meq PO ONETIME ONE Stop: 02/24/17 07:36 Last Admin: 02/24/17 08:06 Dose: 40 meq *Q Meaningful Use (DIS) - VTE *Q VTE Criteria *Q: VTE Pharmacological Contraindications *Q: Thrombocytopenia - Stroke *Q Stroke Criteria *Q: - AMI *Q AMI Criteria *Q: <Andrzej Mcknight - Last Filed: 02/24/17 14:17> Discharge Summary - Hospital Course Free Text/Narrative:: I was present with the resident during the history and exam. I discussed the case with the resident and agree with the findings and plan as documented in the resident;s note Andrzej Mcknight MD - Discharge Diagnosis/Problem(s) (1) Diarrhea SNOMED Code(s): 19010453 ICD Code: R19.7 - DIARRHEA, UNSPECIFIED Status: Acute Priority: High Current Visit: Yes Onset Date: ~02/18/17 Qualifiers: Diarrhea type: presumed infectious Qualified Code(s): A09 - Infectious gastroenteritis and colitis, unspecified (2) Hyponatremia SNOMED Code(s): 04845586 ICD Code: E87.1 - HYPO-OSMOLALITY AND HYPONATREMIA Status: Acute Priority : High Current Visit: Yes (3) Thrombocytopenia SNOMED Code(s): 705668363 ICD Code: D69.6 - THROMBOCYTOPENIA, UNSPECIFIED Status: Acute Priority: High Current Visit: Yes (4) Leukopenia SNOMED Code(s): 51935678 ICD Code: D72.819 - DECREASED WHITE BLOOD CELL COUNT, UNSPECIFIED Status: Acute Priority: Medium Current Visit: Yes - Patient Summary/Data Consults: Consultations 02/23/17 16:35 Consult to Physical Therapy [PT Evaluation and Treatment] [CONS] Routine - Patient Data Vitals - Most Recent: Last Vital Signs Temp 37.4 C 02/24/17 11:50 Pulse 69 02/24/17 04:00 Resp 18 02/24/17 04:00 BP 111/66 02/24/17 04:00 Pulse Ox 96 02/24/17 04:00 I&O - Last 24 hours: Intake & Output 02/23/17 02/24/17 02/24/17 22:59 06:59 14:59 Intake Total 2100 1350 504 Output Total 1100 1005 Balance 1000 345 504 Lab Results - Last 24 hrs: Laboratory Results - last 24 hr 02/24/17 02/24/17 02/24/17 Range/Units 04:24 04:24 04:24 WBC 4.39 (4.0-11.0) K/uL RBC 4.15 L (4.50-5.90) M/uL Hgb 12.6 L (13.0-17.0) g/dL Hct 34.9 L (38.0-50.0) % MCV 84.1 (80.0-98.0) fL MCH 30.4 (27.0-32.0) pg MCHC 36.1 (31.0-37.0) g/dL RDW Std Deviation 43.8 (28.0-62.0) fl RDW Coeff of Colin 14 (11.0-15.0) % Plt Count 14 L (150-400) K/uL Neutrophils % (Manual) 65 (48.0-80.0) % Band Neutrophils % 6 % Lymphocytes % (Manual) 28 (16.0-40.0) % Monocytes % (Manual) 1 (0.0-15.0) % Nucleated RBC % 0.0 /100WBC Absolute Seg Neuts 2.9 Band Neutrophils # 0.3 Lymphocytes # (Manual) 1.2 Monocytes # (Manual) 0 Sodium 134 L (136-146) mmol/L Potassium 3.2 L (3.5-5.1) mmol/L Chloride 107 (98-110) mmol/L Carbon Dioxide 15 L (21-31) mmol/L BUN 44 H (6.0-23.0) mg/dL Creatinine 2.4 H (0.6-1.5) mg/dL Est Cr Clr Drug Dosing 31.40 mL/min Estimated GFR (MDRD) 27.5 ml/min Glucose 84 (60-110) mg/dL Calcium 7.6 L (8.8-10.8) mg/dL Total Bilirubin 0.7 (0.1-1.5) mg/dL AST 302 H (5-40) IU/L ALT 158 H (8-54) IU/L Alkaline Phosphatase 93 (40-150) Creatine Kinase 523 H (9-236) IU/L Total Protein 4.9 L (6.0-8.0) g/dL Albumin 2.7 L (3.4-4.8) g/dL Globulin 2.2 (2.0-3.5) g/dL Albumin/Globulin Ratio 1.2 L (1.3-2.8) Triglycerides 717 H (10-190) mg/dL SHARRI Results - Last 24 hrs: Microbiology 02/22/17 22:05 Stool Culture - Final Stool / Feces NO SALMONELLA, SHIGELLA,OR E.COLI O157 ISOLATED Campylobacter Antigen Assay - Final NEGATIVE CAMPYLOBACTER AG - Final NEGATIVE FOR SHIGA TOXIN 1 - Final NEGATIVE FOR SHIGA TOXIN 2 02/24/17 04:09 Clostridium difficile Toxin A&B (M) - Final Stool / Feces Negative for C.Diff Toxin/AG Med Orders - Current: Current Medications Cefdinir (Omnicef) 300 mg PO BID [facility] Last Admin: 02/24/17 08:07 Dose: 300 mg Fluticasone Propionate (Flonase) 1 gm NASBOTH BID [facility] Last Admin: 02/24/17 08:06 Dose: 1 spray Sodium Chloride (Normal Saline) 1,000 mls @ 125 mls/hr IV ASDIRECTED [facility] Last Admin: 02/24/17 09:00 Dose: 125 mls/hr Ibuprofen (Motrin) 800 mg PO Q8H PRN PRN Reason: FEVER Last Admin: 02/23/17 11:15 Dose: 800 mg Ondansetron HCl (Zofran) 4 mg IVPUSH Q4H PRN PRN Reason: Nausea Discontinued Medications Sodium Chloride (Normal Saline) 1,000 mls @ 125 mls/hr IV STAT [facility] Last Admin: 02/23/17 07:32 Dose: 125 mls/hr Potassium Chloride (Klor-Con M20) 40 meq PO ONETIME ONE Stop: 02/23/17 13:58 Last Admin: 02/23/17 14:59 Dose: 40 meq Potassium Chloride (Klor-Con M20) 40 meq PO ONETIME ONE Stop: 02/24/17 07:36 Last Admin: 02/24/17 08:06 Dose: 40 meq *Q Meaningful Use (DIS) - VTE *Q VTE Criteria *Q: - Stroke *Q Stroke Criteria *Q: - AMI *Q AMI Criteria *Q:
[2017-02-24 14:39] VITALS: BP 138/72
--- NOTE | 2017-02-24 15:07 | MR ---
EXAM DATE: 02/22/17 PATIENT'S AGE: 61 Patient: XOCHILT ZUNIGA Facility: [place], [place] Site . Site : [id number] Study: MRI Head W/ and W/O Cont [id number]/1/2017 5:39:11 PM Ordering Physician: Juan Luis Ortez Final Report: INDICATION: 61-year-old male with imbalance and slurred speech. TECHNIQUE: Sagittal T1, axial FLAIR, axial T2, diffusion-weighted and gadolinium enhanced T1 weighted 3D MP rage sequences. COMPARISON: CT brain dated 02/22/2017. FINDINGS: The ventricles are normal in size and configuration. There is no evidence of acute ischemic infarction there are no areas of diffusion restriction. There is no mass effect or shift of midline structures there are multiple small areas of FLAIR and T2 signal hyperintensity within the bilateral supratentorial white matter that are consistent with chronic microvascular ischemic changes there are no enhancing intra-axial or extra-axial lesions. Inflammatory opacification of bilateral ethmoid air cells and mucosal thickening in the maxillary sinuses noted. Small amount of dependent fluid in the sphenoid sinus. IMPRESSION: 1. No evidence of acute infarction, intracranial hemorrhage, mass or enhancing lesion. 2. Several small signal abnormalities within the supratentorial white matter consistent with chronic microvascular ischemic changes. 3. Inflammatory paranasal sinus changes. Dictated by Mike Wade MD @ 02/23/2017 5:58:08 PM Dictated by: Mike Wade MD @ 02/23/2017 17:58:16 (Electronic Signature) Report Signed by Proxy. F F THOMPSON HOSPITALJackelyn
== END 2017-02-24 13:30 | disposition home or self-care (01) | DRG 948 ==
LOC: MW.ED 13:23 → MW.MS 15:32
PROVIDERS: ADMIT Internal Medicine; ATTEND Internal Medicine
DX: R41.82 Altered mental status, unspecified (principal); E87.1 Hypo-osmolality and hyponatremia; M62.82 Rhabdomyolysis; N17.9 Acute kidney failure, unspecified; E86.0 Dehydration; D69.6 Thrombocytopenia, unspecified; D72.819 Decreased white blood cell count, unspecified; K52.9 Noninfective gastroenteritis and colitis, unspecified; R50.9 Fever, unspecified; R94.5 Abnormal results of liver function studies; J32.9 Chronic sinusitis, unspecified; Z88.2 Allergy status to sulfonamides; Z79.899 Other long term (current) drug therapy
CPT/HCPCS: 36415; 70450; 70450-26; 70553; 70553-26; 71010; 71010-26; 71250; 71250-26; 74176; 74176-26; 76705; 76705-26; 80048; 80053; 80061; 80305; 81001; 82140; 82150; 82550; 82553; 83550; 83630; 83690; 83735; 84478; 84484; 85025; 85027; 85610; 87040; 87046; 87324; 87899; 93005; 96360; 96361; 97161-GP; 99283; 99285-25; A9270-GY; G0480; J7040

== ENCOUNTER 2018-05-13 17:58 | Emergency (ER) | payer OTHER ==
[2018-05-13] MEDS ORDERED: Proparacaine 0.5% Ophth Soln 15 ML Bottle EYERT STA (18:20)
--- NOTE | 2018-05-13 18:34 | EDM.PDOC ---
ED HPI GENERAL MEDICAL PROBLEM - General Chief Complaint: ENT Problem Stated Complaint: SOMETHING INSIDE RT EYE Time Seen by Provider: 05/13/18 18:37 Source of Information: Reports: Patient History Limitations: Reports: No Limitations - History of Present Illness INITIAL COMMENTS - FREE TEXT/NARRATIVE: HISTORY AND PHYSICAL: History of present illness: Ranyd is a 63-year-old male here for possible foreign body in his right eye. 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 He states there is a custom window and some debris got into his right eye. He reports that it became progressively more irritated and prompted him to come into the ER. He states it feels like there is something in his eye. He denies any visual disturbances. He is otherwise in his usual state of health. Review of systems: As per history of present illness and below otherwise all systems reviewed and negative. Past medical history: As per history of present illness and as reviewed below otherwise noncontributory. Surgical history: As per history of present illness and as reviewed below otherwise noncontributory. Social history: No reported history of drug or alcohol abuse. Family history: As per history of present illness and as reviewed below otherwise noncontributory. Physical exam: General: Patient lying comfortably in no acute distress HEENT: The right eye is slightly injected with tearing. There is no foreign body appreciated with fluid diversion. On fluorescein stain with Wood's lamp, there is a small superficial 2 mm abrasion to the left of the iris with minimal uptake of fluorescein stain. Atraumatic, normocephalic, pupils reactive, negative for conjunctival pallor or scleral icterus, mucous membranes moist, throat clear, neck supple, nontender, trachea midline. Lungs: Clear to auscultation, breath sounds equal bilaterally, chest nontender. Heart: S1S2, regular, negative for clicks, rubs, or JVD. Neuro: Awake, alert, oriented. Cranial nerves II through XII unremarkable. Cerebellum unremarkable. Motor and sensory unremarkable throughout. Exam nonfocal. Notes: Diagnostics: [] Therapeutics: Erythromycin ointment Impression: Corneal abrasion Plan: #1 Use antibiotic ointment as directed #2 Follow up with ophthalmology #3 Return to ED as needed as discussed Definitive disposition and diagnosis as appropriate pending reevaluation and review of above. Right Eye Pain Score (Numeric/FACES): 2 - Related Data Allergies Allergy/AdvReac Type Severity Reaction Status Date / Time Sulfa (Sulfonamide Allergy Hives Verified 05/13/18 18:34 Antibiotics) verapamil Allergy Hives Verified 05/13/18 18:34 Home Meds: Home Meds Fluticasone Propionate [Flonase] 1 spray NASBOTH BID #1 bottle 02/24/17 [Rx] Tamsulosin [Tamsulosin 24 Hr] 0.4 mg PO DAILY 05/13/18 [History] Past Medical History HEENT History: Reports: Impaired Vision, Sinusitis Cardiovascular History: Reports: None Respiratory History: Reports: None Gastrointestinal History: Reports: None Genitourinary History: Reports: Prostate Disorder Neurological History: Reports: None Psychiatric History: Reports: None Endocrine/Metabolic History: Reports: None Hematologic History: Reports: None Immunologic History: Reports: None Oncologic (Cancer) History: Reports: None Dermatologic History: Reports: None - Infectious Disease History Infectious Disease History: Reports: None - Past Surgical History Head Surgeries/Procedures: Reports: None Social & Family History - Family History Family Medical History: Noncontributory - Caffeine Use Caffeine Use: Reports: Coffee - Living Situation & Occupation Living situation: Reports: ED ROS ENT - Review of Systems Review Of Systems: ROS reveals no pertinent complaints other than HPI. ED EXAM, ENT - Physical Exam Exam: See Below (See dictation) Course - Vital Signs Last Recorded V/S: Last Vital Signs Temp 36.6 C 05/13/18 18:35 Pulse 66 05/13/18 18:35 Resp 18 05/13/18 18:35 BP 160/83 H 05/13/18 18:35 Pulse Ox 96 05/13/18 18:35 - Orders/Labs/Meds Meds: Medications Discontinued Medications Generic Name Dose Route Start Last Admin Trade Name Freq PRN Reason Stop Dose Admin Proparacaine HCl 2 ml 05/13/18 18:20 05/13/18 18:23 Proparacaine 0.5% Ophth Soln EYERT 05/13/18 18:21 2 ml NOW STA Administration Departure - Departure Time of Disposition: 18:31 Disposition: Home, Self-Care 01 Condition: Good Clinical Impression: Corneal abrasion, right - Discharge Information Referrals: PCP,None [Primary Care Provider] - Forms: ED Department Discharge Additional Instructions: The following information is given to patients seen in the emergency department who are being discharged to home. This information is to outline your options for follow-up care. We provide all patients seen in our emergency department with a follow-up referral. The need for follow-up, as well as the timing and circumstances, are variable depending upon the specifics of your emergency department visit. If you don't have a primary care physician on staff, we will provide you with a referral. We always advise you to contact your personal physician following an emergency department visit to inform them of the circumstance of the visit and for follow-up with them and/or the need for any referrals to a consulting specialist. The emergency department will also refer you to a specialist when appropriate. This referral assures that you have the opportunity for follow-up care with a specialist. All of these measure are taken in an effort to provide you with optimal care, which includes your follow-up. Under all circumstances we always encourage you to contact your private physician who remains a resource for coordinating your care. When calling for follow-up care, please make the office aware that this follow-up is from your recent emergency room visit. If for any reason you are refused follow-up, please contact the [facility] Emergency Department at and asked to speak to the emergency department charge nurse. [facility] [address] [place] [address] #1 Use antibiotic ointment as directed #2 Follow up with ophthalmology #3 Return to ED as needed as discussed
[2018-05-13 18:37] VITALS: BP 160/83
== END 2018-05-13 18:49 | disposition home or self-care (01) ==
LOC: MW.ED 17:58
DX: S05.01XA Injury of conjunctiva and corneal abrasion without foreign body, right eye, initial encounter (principal); Z88.2 Allergy status to sulfonamides; Z88.8 Allergy status to other drugs, medicaments and biological substances; Z79.899 Other long term (current) drug therapy; Y99.9 Unspecified external cause status; W45.8XXA Other foreign body or object entering through skin, initial encounter
CPT/HCPCS: 99283